=== PATIENT | female | born 2000 ===

== ENCOUNTER 2025-07-31 20:47 | Emergency (ER) | payer BC ==
[2025-07-31 21:30] LABS: APPEARANCE,URINE CLEAR (CLEAR); GLUCOSE,URINE NEGATIVE (NEGATIVE); OCCULT BLOOD,URINE NEGATIVE (NEGATIVE)
[2025-07-31 21:36] LABS: SQUAMOUS EPITHELIAL CELLS,UR FEW /HPF; UROTHELIAL CELLS,URINE NOT SEEN /HPF
== END 2025-07-31 22:27 | disposition home or self-care (01) ==
LOC: JP.ED 20:47
DX: Z32.01 Encounter for pregnancy test, result positive (principal)
CPT/HCPCS: 81001; 81025; 99282; 99283

== ENCOUNTER 2025-08-12 03:43 | Emergency (ER) | payer BC | END 2025-08-12 04:46 | disposition home or self-care (01) | LOC: JP.ED 03:43 | DX: O03.4 Incomplete spontaneous abortion without complication (principal) | CPT/HCPCS: 99283 ==